=== PATIENT | female | born 1985 | race Caucasian/White ===

== ENCOUNTER → 2020-09-27 13:04 | Outpatient (CLI) | payer OTHER, SELFPAY ==
--- NOTE | ~2020-09-27 | XR_ITS ---
XR cervical spine 4-5V DATE: 09/27/2020 13:45 INDICATION: Bilateral hand numbness TECHNIQUE: Standing AP, lateral, swimmer's, open-mouth and odontoid views COMPARISON: None FINDINGS: C1 and C2 are normally aligned and the odontoid process is intact. No fracture or dislocati on or locked facet or prevertebral soft tissue swelling. Cervical interspaces are well preserved. IMPRESSION: Negative Reviewed, dictated and finalized at location [facility]. NO ENFORCEMENT AGENT IMPRESSION: Negative
== END ==
PROVIDERS: PCP Internal Medicine; Visit Provider Internal Medicine
DX: R20.0 Anesthesia of skin (principal)
CPT/HCPCS: 72050

== ENCOUNTER 2023-08-05 08:36 | Emergency (ER) | payer OTHER, SELFPAY ==
--- NOTE | 2023-08-05 09:03 | ED.SKABFB ---
HPI - Skin/Abscess/Foreign Bdy General Chief complaint: Extremity Problem,Nontraumatic Stated complaint: TOE PAIN/SWELLING Time Seen by Provider: 08/05/23 09:03 Source: patient Mode of arrival: ambulatory Limitations: no limitations History of Present Illness HPI narrative: 38-year-old female with no significant medical history presents to urgent care today with complaint of redness swelling and pain to left great toe for 6 days. Call primary care physician when symptoms 1st started and was told to take ibuprofen and Voltaren to treat gout. Went to [facility] urgent care the next day and was told she had since cellulitis and was given cephalexin. States nurse practitioner at [facility] urgent care told her to stop ibuprofen and take Tylenol. Has been taking cephalexin 4 times a day. Reports improvement to redness, pain with cephalexin but reports swelling is worse. Unable to walk normally, walking on lateral aspect left foot. Patient called her primary care physician on and asked for uric acid level to be added to her basic labs in he would not add it. Patient here today due to continued pain and swelling. Patient would like a definitive answer if she has gout or cellulitis. All systems reviewed and negative except as noted above. Related Data Home Medications Medication Instructions Recorded Confirmed cephalexin 500 mg capsule mg 08/05/23 Allergies Allergy/AdvReac Type Severity Reaction Status Date / Time No Known Allergies Allergy Unknown Verified 08/05/23 09:06 Review of Systems Review of Systems: CONSTITUTIONAL: Denies fever, chills, or sweats. EYES: Denies visual changes, redness, or discharge. ENT: Denies rhinorrhea, congestion, sore throat, or otalgia. CARDIOVASCULAR: Denies chest pain, palpitations, or edema. RESPIRATORY: Denies cough or dyspnea. GASTROINTESTINAL: Denies abdominal pain, nausea, vomiting, or diarrhea. GENITOURINARY: Denies dysuria or hematuria. SKIN: Denies rash or itching. MUSCULOSKELETAL: Denies back pain, or myalgia. Reports pain to left great toe. NEUROLOGIC: Denies headache, numbness, or weakness. PSYCHIATRIC: Denies anxiety or depression. All other systems reviewed are negative, except as documented in HPI. PMFSH Comments At time of signature, agree with nursing past medical, surgical, social and family history. There is no relevant family history pertinent to the presenting complaint. Exam Narrative: GENERAL: This is a well-nourished, well-developed patient, in no apparent distress. HEAD: normocephalic, atraumatic. EYES: PERRL. Sclera clear/white. Vision is grossly intact. EARS: External ears normal NOSE: External nose normal NECK: Neck supple, non-tender without lymphadenopathy, masses or thyromegaly. CARDIOVASCULAR: Regular rate and rhythm without murmurs, gallops, or rubs. RESPIRATORY: Clear to auscultation. Breath sounds equal bilaterally. No wheezes, rales, or rhonchi. SKIN: warm, Dry, intact with no suspicious lesions or rash, good texture and turgor. NEURO: awake, alert, and oriented to person, place and time. There were no obvious focal neurologic abnormalities. EXTREMITIES: tenderness on palpation of L great toe. erythema to side of L great toe, no warmth. swelling to L great toe extending into foot. Course Course Level of Care: Express Care Visit Vital Signs Vital signs: Vital Signs Temperature 36.6 C 08/05/23 09:07 Pulse Rate 86 08/05/23 09:07 Respiratory Rate 20 08/05/23 09:07 Blood Pressure 102/78 08/05/23 09:07 Pulse Oximetry 98 08/05/23 09:07 Oxygen Delivery Room Air 08/05/23 09:07 Temperature 36.6 C 08/05/23 09:07 Pulse Rate 86 08/05/23 09:07 Respiratory Rate 20 08/05/23 09:07 Blood Pressure 102/78 08/05/23 09:07 Pulse Oximetry 98 08/05/23 09:07 Oxygen Delivery Room Air 08/05/23 09:07 Reviewed MDM - Skin/Abscess/Foreign Bdy MDM Narrative Medical decision making narrative: pt very upset at disc
[2023-08-05 09:07] VITALS: BP 102/78; PULSE 86; RESP 20; TEMP 36.6; O2SAT 98
== END 2023-08-05 09:36 | disposition home or self-care (01) ==
PROVIDERS: Emergency Provider Nurse Practitioner Family; PCP Internal Medicine
DX: M10.9 Gout, unspecified (principal)
CPT/HCPCS: 99213; G0463

== ENCOUNTER 2024-07-19 09:52 | Outpatient (CLI) | payer OTHER, SELFPAY ==
--- NOTE | ~2024-07-19 | XR_ITS ---
Cervical Spine: AP, lateral, open-mouth views Clinical History: Pain Findings: The normal lordotic curve is maintained. The vertebral bodies and posterior elements appea r intact. The intervertebral disc spaces are well maintained. Pre-vertebral soft tissues are unremar kable. Impression: No significant abnormality is seen. Reviewed, dictated and finalized at [facility]. FACTURING EXECUTIVE Impression: No significant abnormality is seen.
--- NOTE | ~2024-07-19 | XR_ITS ---
Thoracic spine: Clinical Indication: Back pain AP and lateral views were performed. No fracture is seen. There is normal alignment of the vertebrae. The intervertebral disc spaces appe ar normal. Paravertebral soft tissues appear normal. Impression: No significant abnormalities noted. Reviewed, dictated and finalized at [facility]. ADMINISTRATOR Impression: No significant abnormalities noted.
== END 2024-07-19 09:53 | disposition home or self-care (01) ==
LOC: MICIMG 09:53
PROVIDERS: PCP Chiropractor; Visit Provider Chiropractor
DX: M54.2 Cervicalgia (principal); M99.01 Segmental and somatic dysfunction of cervical region; M54.6 Pain in thoracic spine; M99.02 Segmental and somatic dysfunction of thoracic region
CPT/HCPCS: 72040; 72070